=== PATIENT | male | born 1990 | race Caucasian/White ===

== ENCOUNTER 2018-08-07 13:38 | Emergency (ER) | payer OTHER ==
[2018-08-07 13:44] VITALS: BP 127/76; PULSE 98; TEMP 98.7; BMI 25.9
--- NOTE | 2018-08-07 13:52 | PDOC ---
History of Present Illness - General Chief Complaint: Laceration Stated Complaint: LACERATION LEFT 3 RD FINGER AT WORK Time Seen by Provider: 08/07/18 13:50 History Source: Patient Exam Limitations: No Limitations - History of Present Illness Initial Comments: 08/07/18 13:51 28 year old male with ___ PMH presented to ED for laceration to left third finger after cutting himself with a knife while cutting vegetables. Pt stated his last tetanus shot was ___. Pt denied decreased ROM, numbness, tingling. Past History - Past Medical History Allergies/Adverse Reactions: Allergies Allergy/AdvReac Type Severity Reaction Status Date / Time No Known Allergies Allergy Verified 08/07/18 13:39 Home Medications: Ambulatory Orders NK [No Known Home Medication] 08/07/18 COPD: No Other medical history: pt denies - Suicide/Smoking/Psychosocial Hx Smoking History: Current every day smoker Number of Cigarettes Smoked Daily: 2 Information on smoking cessation initiated: Yes Hx Alcohol Use: Yes (2 beers daily) Drug/Substance Use Hx: No *Physical Exam - Vital Signs Last Vital Signs Temp Pulse Resp BP Pulse Ox 98.7 F 98 H 18 127/76 99 08/07/18 13:41 08/07/18 13:41 08/07/18 13:41 08/07/18 13:41 08/07/18 13:41 Moderate Sedation - Procedure Monitoring Vital Signs: Procedure Monitoring Vital Signs Temperature 98.7 F 08/07/18 13:41 Pulse Rate 98 H 08/07/18 13:41 Respiratory Rate 18 08/07/18 13:41 Blood Pressure 127/76 08/07/18 13:41 O2 Sat by Pulse Oximetry (%) 99 08/07/18 13:41 ED Treatment Course - RADIOLOGY Radiology Studies Ordered: Category Date Time Status HAND- LEFT [RAD] Stat Radiology 08/07/18 13:50 Ordered *DC/Admit/Observation/Transfer - Discharge Dispostion Condition at time of disposition: Stable - Referrals - Patient Instructions - Post Discharge Activity
[2018-08-07] MEDS ORDERED: DIPHTH,PERTUSS(ACELL),TET 0.5 ML DISP.SYRIN IM ONE ×2 (13:59→14:08)
[2018-08-07] MEDS ORDERED: IBUPROFEN 600 MG TABLET (FP) PO ONE ×2 (14:00→14:07)
--- NOTE | 2018-08-07 14:01 | PDOC ---
Attending Attestation - Resident Resident Name: Mary Beth Lara - ED Attending Attestation I have performed the following: I have examined & evaluated the patient, The case was reviewed & discussed with the resident, I agree w/resident's findings & plan - HPI HPI: 08/07/18 14:01 Erik 28 YOM s/p cut to his left index finger while slicing vegetables. No numbness tingling or weakness. Able to range his fingers, bleeding controlled. Tetanus_last unknown. No medical history or surgical history - Physicial Exam PE: 08/07/18 14:01 General: NAD, well appearing Vascular: 2+ radialis pulses symmetric and equal. Neuro: distal aperture mask etcher strength 5/5. sensation grossly intact in median/radial/ ulnar distribution. MSK: soft compartments, Cap refill <2 sec. 2+ radialis pulses bilaterally and symmetric. FDP/FDS intact. no joint tenderness. FROM. Skin: color normal color, warm and well perfused. Laceration_ nonbleeding, nontender.
--- NOTE | 2018-08-07 14:07 | PDOC ---
History of Present Illness - General Chief Complaint: Laceration Stated Complaint: LACERATION LEFT 3 RD FINGER AT WORK Time Seen by Provider: 08/07/18 13:50 History Source: Patient Exam Limitations: No Limitations - History of Present Illness Initial Comments: 08/07/18 14:12 Erik 28 YOM s/p cut to his left index finger while slicing vegetables. No numbness tingling or weakness. Able to range his fingers, bleeding controlled. Tetanus_last unknown. No medical history or surgical history Constitutional: no fevers or chills. MUSCULOSKELETAL: No joint pain and swelling. No neck or back pain. SKIN: +wound, bleeding Hematologic: no easy bruising/bleeding. NEUROLOGIC: No headache, dizziness, LOC or altered mental status. No weakness, numbness or tingling. All other systems reviewed and negative, or as documented in HPI. General: NAD, well appearing Vascular: 2+ radialis pulses symmetric and equal. Neuro: distal classroom instructor strength 5/5. sensation grossly intact in median/radial/ ulnar distribution. MSK: soft compartments, Cap refill <2 sec. 2+ radialis pulses bilaterally and symmetric. FDP/FDS intact. no joint tenderness. FROM. Skin: color normal color, warm and well perfused. Laceration to left index finger on dorsal aspect, superficial skin avulsion +mild bleeding, nontender. Past History - Past Medical History Allergies/Adverse Reactions: Allergies Allergy/AdvReac Type Severity Reaction Status Date / Time No Known Allergies Allergy Verified 08/07/18 13:39 Home Medications: Ambulatory Orders NK [No Known Home Medication] 08/07/18 COPD: No Other medical history: pt denies - Suicide/Smoking/Psychosocial Hx Smoking History: Current every day smoker Number of Cigarettes Smoked Daily: 2 Information on smoking cessation initiated: Yes Hx Alcohol Use: Yes (2 beers daily) Drug/Substance Use Hx: No *Physical Exam - Vital Signs Last Vital Signs Temp Pulse Resp BP Pulse Ox 98.7 F 98 H 18 127/76 99 08/07/18 13:41 08/07/18 13:41 08/07/18 13:41 08/07/18 13:41 08/07/18 13:41 Moderate Sedation - Procedure Monitoring Vital Signs: Procedure Monitoring Vital Signs Temperature 98.7 F 08/07/18 13:41 Pulse Rate 98 H 08/07/18 13:41 Respiratory Rate 18 08/07/18 13:41 Blood Pressure 127/76 08/07/18 13:41 O2 Sat by Pulse Oximetry (%) 99 08/07/18 13:41 Medical Decision Making - Medical Decision Making 08/07/18 14:13 tdap updated vitals wnl bleeding controlled surgicel over avulsion, very superficial without skin flap for full repair. bandaid and compression dressing over. otc motrin/tylenol prn for pain control DC with wound care instructions, f/u pcp, monitor for infection work note provided, avoid further strain or trauma. 08/07/18 14:31 *DC/Admit/Observation/Transfer Diagnosis at time of Disposition: Laceration of finger of left hand - Discharge Dispostion Disposition: HOME Condition at time of disposition: Stable Decision to Admit order: No - Referrals Referrals: [facility] [place] [facility] [place] [Provider Group] [facility] [Provider Group] - Patient Instructions Printed Discharge Instructions: DI for Laceration Repair Steri-Strips, DI for Minor Laceration Additional Instructions: wound/laceration assessed and repaired with topical surgicel and xeroform, w/o complications, bleeding controlled. area cleaned and dried, dressings placed with topical antibiotic ointment or vaseline. monitor for signs of infection including fevers or chills, redness, streaking, swelling, purulence, malodor. keep dry x 24 hours, then may wash with soap and water 2-3X per day, topical antibiotics such as neosporin. if bleeding occurs, put pressure x 15 minutes. motrin/tylenol for pain control. tetanus is also up to date today. Herida / laceracin evaluada y reparada con ciruga tpica y xeroforma, sin complicaciones, sangrado controlado. parish limpia y seca, apsitos colocados con pomada antibitica tpica o vaselina. vigile si hay signos de infeccin, alec fiebres o escalofros, enrojecimiento, sav, hinchazn, purulencia, mal olor. Mantngalo seco x 24 horas, luego puede lavarlo con agua y jabn 2-3X por da, antibiticos tpicos alec la neosporina. Si se produce sangrado, presionar x 15 minutos. Motrin / tylenol para el control del dolor. El ttanos tambin est al da hoy. Print Language: ETHIOPIAN - Post Discharge Activity Forms/Work/School Notes: Back to Work
== END 2018-08-07 14:39 | disposition home or self-care (01) ==
LOC: FER 13:38
PROC: 3E0234Z Introduction of Serum, Toxoid and Vaccine into Muscle, Percutaneous Approach (ICD-10-PCS; principal; 2018-08-07)
DX: S61.213A Laceration without foreign body of left middle finger without damage to nail, initial encounter (principal); W26.0XXA Contact with knife, initial encounter; Y93.G1 Activity, food preparation and clean up; Y92.9 Unspecified place or not applicable; F17.210 Nicotine dependence, cigarettes, uncomplicated
CPT/HCPCS: 73130-TC-LT-FY; 90715; 99282-25